=== PATIENT | female | born 1985 | race Caucasian/White ===

== ENCOUNTER 2021-03-06 03:09 | Outpatient (CLI) | payer MEDICAID, SELFPAY ==
[2021-03-06 12:18] LABS: Kit/Specimen SENT
[2021-03-06 12:28] LABS: Abs Immature Grans 0.07 10^3/uL (0.0-0.06); Absolute Basophil Count 0.03 10^3/uL (0.0-0.2); Absolute Eosinophil Count 0.23 10^3/uL (0.0-0.7); Absolute Monocyte Count 0.89 10^3/uL (0.1-0.8); Absolute Neutrophil Count 10.14 10^3/uL (1.2-6.7); Basophils % 0.2; Eosinophils % 1.7; HCT 37.3 % (36.0-46.0); Immature Grans % 0.5; Lymphocytes % 16.2; MCHC 34.9 % (32.0-36.0); MCV 88.8 fL (80-95); MPV 9.9 fL (8.0-11.0); Monocytes % 6.6; Neutrophils % 74.8; Nucleated RBC 0 %; Platelet Count 331 10^3/uL (130-400); RDW 12.5 % (11.7-14.6); RDW-SD 40.9 fL; WBC 13.55 10^3/uL (4.4-10.8)
[2021-03-06 12:30] LABS: Glucose,1 Hr (Glucola) 126 mg/dL (80-140)
[2021-03-06 13:20] LABS: TSH (W/Ref FT4) 1.39 uIU/mL (0.36-3.74)
[2021-03-07 10:17] LABS: HIV-1/2 Ag & Ab Screen Negative (Negative)
[2021-03-07 10:34] LABS: Hepatitis C Ab w Rflx HCV PCR Negative (Negative)
[2021-03-07 10:53] LABS: Rubella IgG Ab (UVM) Positive (See Note); Varicella IgG Antibody Positive (See Note)
[2021-03-07 11:00] LABS: Hepatitis B Surface Ag Negative (Negative)
[2021-03-08 12:37] LABS: Syphilis Total Ab w/Reflex Nonreactive (Nonreactive)
[2021-03-12 15:35] LABS: Result Summary NEGATIVE; Specimen WB Whole Blood
== END 2021-03-06 03:10 | disposition home or self-care (01) ==
LOC: LBO 03:09
PROVIDERS: Obstetrics & Gynecology; PCP Nurse Practitioner; Visit Provider Advanced Practice Midwife
DX: O09.891 Supervision of other high risk pregnancies, first trimester (principal); Z11.4 Encounter for screening for human immunodeficiency virus [HIV]; Z11.59 Encounter for screening for other viral diseases; Z01.84 Encounter for antibody response examination; F41.8 Other specified anxiety disorders; O99.211 Obesity complicating pregnancy, first trimester
CPT/HCPCS: 36415; 82950; 86787; 86803; 86850; 86900; 86901; 87340; 87389; 81220; 84443; 85025; 86762; 86780

== ENCOUNTER 2021-03-06 12:16 | Outpatient (REF) | payer MEDICAID, SELFPAY ==
--- NOTE | 2021-03-06 11:30 | PAPFT_PTH ---
PATIENT: Evita Cruz LOC: [facility] U#:[id number] AGE/SX: 36/F ROOM: RE03/06/[address]: Lavonne Abel : 1985 BED: DIS: 03/06/2021 SPEC #: [id number] RECD: 03/06/21 12:51 STATUS: AMRIK REPraveen #: [id number] ALESIA: 03/06/21 11:[address]: Lavonne Abel DEPT: [facility] Cytology RECD BY: Mary Payton ENTERED: 03/06/21 12:51 SP TYPE: PAPFT OTHR DR: Jessica Ibrahim Tissues: 1 - CX/ENDOCX FOR PAP SMEARS Procedures: PAP THIN PREP/[facility] Screening HPV DNA PROBE Comments: [id number]
[2021-03-06 15:00] LABS: *AMPHETAMINES SCREEN URINE Negative (Negative); *BARBITURATES SCREEN URINE Negative (Negative); *BENZODIAZEPINES SCREEN URINE Negative (Negative); Cannabinoids THC Negative (Negative); Cocaine Screen,Urine Negative (Negative); METHADONE URINE SCREEN Negative (Negative); OPIATES URINE SCREEN Negative (Negative)
[2021-03-06 15:03] LABS: Tricyclic Antidepressants Negative (Negative)
[2021-03-10 14:57] LABS: Chlamydia Result Negative (Negative); GC Result Negative (Negative)
[2021-03-13 11:17] LABS: Buprenorphine Negative ng/mL (Cutoff: 5.0); Norbuprenorphine Negative ng/mL (Cutoff: 2.5)
== END 2021-03-06 12:17 | disposition home or self-care (01) ==
LOC: LBN 12:16
PROVIDERS: PCP Nurse Practitioner; Visit Provider Advanced Practice Midwife
DX: Z34.91 Encounter for supervision of normal pregnancy, unspecified, first trimester (principal); Z11.3 Encounter for screening for infections with a predominantly sexual mode of transmission; Z12.4 Encounter for screening for malignant neoplasm of cervix; Z11.51 Encounter for screening for human papillomavirus (HPV)
CPT/HCPCS: 80307; 87491; 87591; 88142; 87086; 87480; 87510; 87624; 87660

== ENCOUNTER 2021-03-17 01:18 | Outpatient (CLI) | payer MEDICAID, SELFPAY ==
--- NOTE | 2021-03-17 07:00 | DI.US_ITS ---
Exam(s) US OB NAHOMI WEIGHT EXAM: US OB NAHOMI WEIGHT CLINICAL HISTORY: anatomy,high risk,obesity,O09.90. TECHNIQUE: Transabdominal obstetrical ultrasound was performed. This is the 1st for this is station our department. Seems somewhat early for anomaly survey study. COMPARISON: No exams were available for comparison FINDINGS: There is a single viable intrauterine gestation with cardiac activity identified-143 bpm Amniotic fluid: There is a normal amount of amniotic fluid with an NAHOMI of cm. Placental location: The placenta is posterior grade 0,with no evidence of placenta previa. Dating parameters place this at approximately 17 weeks and 1 day gestational age, implying LEESA of August 24, 2021. BPD measures 17 weeks and 2 days HC measures 17 weeks AC measures 17 week FL measures 17 weeks and 2 days Estimated weight is 183 gm-0 pound 6 ounces Fetus is at the 21st percentile on the Hadlock scale. IMPRESSION:: Viable intrauterine gestation, as described above. anomaly study was not performed today. Fetus is too early for anomaly study. DATA REPOSITORY:
== END 2021-03-17 01:38 ==
PROVIDERS: PCP Nurse Practitioner; Visit Provider Obstetrics & Gynecology
DX: O09.92 Supervision of high risk pregnancy, unspecified, second trimester (principal); O99.212 Obesity complicating pregnancy, second trimester; Z3A.17 17 weeks gestation of pregnancy
CPT/HCPCS: 76816

== ENCOUNTER 2021-05-16 02:19 | Outpatient (CLI) | payer MEDICAID, SELFPAY ==
[2021-05-16 16:46] LABS: Glucose,1 Hr (Glucola) 106 mg/dL (80-140)
[2021-05-16 16:58] LABS: HCT 37.7 % (36.0-46.0); HGB 12.5 g/dL (11.2-15.7); MCHC 33.2 % (32.0-36.0); MCV 90.6 fL (80-95); Platelet Count 337 10^3/uL (130-400); RBC 4.16 10^6/uL (3.93-5.22); RDW 12.9 % (11.7-14.6); RDW-SD 42.2 fL; WBC 17.05 10^3/uL (4.4-10.8)
== END 2021-05-16 02:20 | disposition home or self-care (01) ==
LOC: LBO 02:20
PROVIDERS: PCP Nurse Practitioner; Visit Provider Advanced Practice Midwife
DX: Z34.92 Encounter for supervision of normal pregnancy, unspecified, second trimester (principal); Z3A.26 26 weeks gestation of pregnancy
CPT/HCPCS: 36415; 82950; 85027

== ENCOUNTER 2021-07-18 13:41 | Outpatient (REF) | payer MEDICAID, SELFPAY ==
[2021-07-18 15:59] LABS: *AMPHETAMINES SCREEN URINE Negative (Negative); *BARBITURATES SCREEN URINE Negative (Negative); *BENZODIAZEPINES SCREEN URINE Negative (Negative); Cannabinoids THC Negative (Negative); Cocaine Screen,Urine Negative (Negative); METHADONE URINE SCREEN Negative (Negative); OPIATES URINE SCREEN Negative (Negative)
[2021-07-18 16:00] LABS: Tricyclic Antidepressants Negative (Negative)
[2021-07-24 11:45] LABS: Buprenorphine Negative ng/mL (Cutoff: 5.0); Norbuprenorphine Negative ng/mL (Cutoff: 2.5)
== END 2021-07-18 13:42 | disposition home or self-care (01) ==
LOC: LBN 13:41
PROVIDERS: PCP Nurse Practitioner; Visit Provider Obstetrics & Gynecology Gynecology
DX: Z34.93 Encounter for supervision of normal pregnancy, unspecified, third trimester (principal); Z3A.35 35 weeks gestation of pregnancy
CPT/HCPCS: 80307; 87081

== ENCOUNTER 2021-08-04 10:31 | Outpatient (CLI) | payer MEDICAID, SELFPAY ==
[2021-08-04 10:38] VITALS: BP 133/61; PULSE 90; TEMP 37
[2021-08-04 10:57] LABS: HCT 36.3 % (36.0-46.0); HGB 11.8 g/dL (11.2-15.7); MCH 29.3 pg (27.0-33.0); MCHC 32.5 % (32.0-36.0); MCV 90.1 fL (80-95); MPV 9.9 fL (8.0-11.0); Platelet Count 292 10^3/uL (130-400); RBC 4.03 10^6/uL (3.93-5.22); RDW-SD 42.6 fL; WBC 12.96 10^3/uL (4.4-10.8)
[2021-08-04 11:11] LABS: ALT 14 U/L (14-59); AST 11 U/L (15-37); Albumin 2.7 g/dL (3.4-5.0); Alkaline Phosphatase 114 U/L (46-116); Anion Gap 10.6 mmol/L (3-11); BUN 9 mg/dL (7-18); Bilirubin, Total 0.1 mg/dL (0.2-1.0); CO2 23.4 mmol/L (21.0-32.0); CREATININE 0.6 mg/dL (0.55-1.02); Chloride 104 mmol/L (98-107); Glucose 109 mg/dL (74-106); Sodium 138 mmol/L (136-145); Total Protein 6.7 g/dL (6.4-8.2)
[2021-08-04 11:27] VITALS: BP 133/61; PULSE 90
--- NOTE | 2021-08-04 11:41 | W.OBNST ---
Date of service: 08/05/21 Time of Service: 15:20 NST Evaluation Reason for NST Reason for NST Other: Elevated blood pressure NST Evaluation NST Results: Reactive NST Results Other: Reactive, category 1 NST Note NST Note Note: Reactive strip, category 1 NST NST Reviewed and Verified by: Serene Greenberg
== END 2021-08-04 11:45 | disposition home or self-care (01) ==
LOC: BCD 10:32 → OBS 10:37
PROVIDERS: PCP Nurse Practitioner; Visit Provider Obstetrics & Gynecology
DX: O26.893 Other specified pregnancy related conditions, third trimester (principal); R03.0 Elevated blood-pressure reading, without diagnosis of hypertension; Z3A.38 38 weeks gestation of pregnancy
CPT/HCPCS: 59025; 36415; 80053; 85027

== ENCOUNTER 2021-10-06 16:11 | Outpatient (REF) | payer MEDICAID, SELFPAY ==
[2021-10-08 07:27] LABS: Chlamydia Result Negative (Negative); GC Result Negative (Negative)
== END 2021-10-06 16:12 | disposition home or self-care (01) ==
LOC: LBN 16:11
PROVIDERS: PCP Nurse Practitioner; Visit Provider Obstetrics & Gynecology
DX: Z11.3 Encounter for screening for infections with a predominantly sexual mode of transmission (principal)
CPT/HCPCS: 87491; 87591

== ENCOUNTER 2022-01-21 16:05 | Outpatient (REF) | payer OTHER, SELFPAY ==
[2022-01-21 18:37] LABS: HCT 43.6 % (36.0-46.0); HGB 13.7 g/dL (11.2-15.7); MCHC 31.4 % (32.0-36.0); MPV 9.8 fL (8.0-11.0); Platelet Count 393 10^3/uL (130-400); RBC 5.07 10^6/uL (3.93-5.22); RDW 14.3 % (11.7-14.6); RDW-SD 45.2 fL; WBC 7.71 10^3/uL (4.4-10.8)
[2022-01-21 18:46] LABS: ALT 23 U/L (14-59); AST 14 U/L (15-37); Albumin 3.8 g/dL (3.4-5.0); Alkaline Phosphatase 89 U/L (46-116); Anion Gap 8.4 mmol/L (3-11); BUN 13 mg/dL (7-18); Bilirubin, Total 0.3 mg/dL (0.2-1.0); CO2 27.6 mmol/L (21.0-32.0); CREATININE 0.8 mg/dL (0.55-1.02); Chloride 103 mmol/L (98-107); Glucose 89 mg/dL (74-106); Potassium 4.4 mmol/L (3.5-5.1); Sodium 139 mmol/L (136-145); TSH (W/Ref FT4) 1.63 uIU/mL (0.36-3.74); Total Protein 7.5 g/dL (6.4-8.2)
== END 2022-01-21 16:06 | disposition home or self-care (01) ==
LOC: NCHCN 16:05
PROVIDERS: PCP Nurse Practitioner; Visit Provider Nurse Practitioner Family
DX: F41.8 Other specified anxiety disorders (principal); E66.9 Obesity, unspecified
CPT/HCPCS: 80053; 85027; 84443

== ENCOUNTER 2023-09-06 09:59 | Outpatient (REF) | payer MEDICAID, SELFPAY ==
[2023-09-06 15:08] LABS: ALT 21 U/L (14-59); AST 12 U/L (15-37); Albumin 3.5 g/dL (3.4-5.0); Alkaline Phosphatase 70 U/L (46-116); BUN 12 mg/dL (7-18); Bilirubin, Total 0.3 mg/dL (0.2-1.0); Calcium 9.2 mg/dL (8.5-10.1); Calculated LDL 75 mg/dL (<100); Chloride 105 mmol/L (98-107); Cholesterol 131 mg/dL (<200); Estimated GFR 73.95 (mL/min/1.73m2); Glucose 90 mg/dL (74-106); HDL Cholesterol 49 mg/dL (40-60); Potassium 4.5 mmol/L (3.5-5.1); Sodium 140 mmol/L (136-145); Total Protein 6.8 g/dL (6.4-8.2); Triglyceride 38 mg/dL (<150)
[2023-09-06 15:31] LABS: Hemoglobin A1C 5.5 % (<5.7)
== END 2023-09-06 10:00 | disposition home or self-care (01) ==
LOC: NCHCN 09:59
PROVIDERS: PCP Nurse Practitioner; Visit Provider Nurse Practitioner Family
DX: E66.01 Morbid (severe) obesity due to excess calories (principal); Z13.220 Encounter for screening for lipoid disorders; Z13.1 Encounter for screening for diabetes mellitus
CPT/HCPCS: 80053; 80061; 83036

== ENCOUNTER 2024-10-16 02:14 | Outpatient (CLI) | payer OTHER, SELFPAY ==
--- NOTE | 2024-10-16 08:00 | DI.RAD_ITS ---
Exam(s) XR LUMBAR SPINE COMPLETE EXAM: XR LUMBAR SPINE COMPLETE CLINICAL HISTORY: ? bony abnormality, scoliois,lumbar back pain with radiculopathy,m54.16. TECHNIQUE: 2D digital imaging was performed. Five views. COMPARISON: No exams were available for comparison FINDINGS: BONES: No fracture or destructive lesion. Vertebral body heights are maintained. No facet hypertro phy identified . DISKS: Intervertebral disc spaces are maintained. ALIGNMENT: Lumbar spinal alignment is within normal limits. SOFT TISSUE: Normal. IUD. IMPRESSION: Unremarkable radiographs of the lumbar spine. DATA REPOSITORY: RADIATION DOSE DELIVERED:
== END 2024-10-16 02:34 ==
LOC: DI 02:14
PROVIDERS: PCP Nurse Practitioner Adult Health; Visit Provider Nurse Practitioner Adult Health
DX: M54.16 Radiculopathy, lumbar region (principal)
CPT/HCPCS: 72110

== ENCOUNTER 2025-02-06 14:03 | Outpatient (REF) | payer OTHER, SELFPAY ==
--- NOTE | 2025-02-06 13:30 | PAPFT_PTH ---
PATIENT: Evita Cruz LOC: [facility] U#:[id number] AGE/SX: 39/F ROOM: RE02/06/[address]: Grisel Jacob NP : 1985 BED: DIS: 02/06/2025 SPEC #: [id number] RECD: 02/06/25 18:19 STATUS: AMRIK REQ #: [id number] ALESIA: 02/06/25 13:[address]: Nidia GARCIA,Grisel DEPT: [facility]ology RECD BY: Mary Payton ENTERED: 02/06/25 18:20 SP TYPE: PAPFT OTHR DR: Mindy Jackson APRN Tissues: 1 - CX/ENDOCX FOR PAP SMEARS Procedures: PAP THIN PREP/[facility] Screening HPV DNA PROBE Comments: [id number] (HPV 16 & 18/45)
== END 2025-02-06 14:04 | disposition home or self-care (01) ==
LOC: LBN 14:03
PROVIDERS: PCP Nurse Practitioner Adult Health; Visit Provider Nurse Practitioner Women's Health
DX: Z12.4 Encounter for screening for malignant neoplasm of cervix (principal); Z11.51 Encounter for screening for human papillomavirus (HPV)
CPT/HCPCS: 88142; 87624

== ENCOUNTER 2025-03-08 02:26 | Outpatient (CLI) | payer OTHER, SELFPAY ==
--- NOTE | 2025-03-08 12:00 | DI.MAMMO_ITS ---
Exam(s) MAMMO SCREENING EXAM: MAMMO SCREENING CLINICAL HISTORY: screening TECHNIQUE: Bilateral full field digital CC and MLO mammographic images were obtained with 3D tomosyn thesis and utilizing computer aided detection (CAD). COMPARISON: This is a baseline examination. FINDINGS: Masses/Architectural Distortion: No suspicious masses or areas of architectural distortion are presen t. Microcalcifications: No suspicious pleomorphic-type are seen. Skin Thickening/Nipple Retraction: None. IMPRESSION: 1. No evidence for malignancy is seen at this time. 2. Unless there is more urgent need, screening mammography is recommended, as per [employer] guidelines. BI-RADS Category 1 - Negative Breast Density - Category B - There are scattered areas of fibroglandular density. Breast density Category C or D implies that the patient has dense breast tissue. Dense breast tissue can make it harder to find cancer on a mammogram. Dense breast tissue is also associated with an incr eased risk of breast cancer. This information about the result of the mammogram report was provided to the patient to raise their awareness. Use this report when you speak with the patient about their risks for breast cancer, which includes their family history. At that time, you may recommend additional screening tests (Ultrasoun d or MRI) as these tests may add significant information. A negative radiographic report should not delay biopsy if a dominant or clinically suspicious mass is present. Up to ten percent of cancers are not identified on mammography. A negative report may reinforce clinical impression. Adenosis and dense breasts may obscure an underlying neoplasm. False positive reports average 6 to 10%. Patient will receive a letter notifying them of these results.
== END 2025-03-08 02:46 ==
LOC: DI 02:26
PROVIDERS: PCP Nurse Practitioner Adult Health; Visit Provider Nurse Practitioner Women's Health
DX: Z12.31 Encounter for screening mammogram for malignant neoplasm of breast (principal); R92.323 Mammographic fibroglandular density, bilateral breasts
CPT/HCPCS: 77063; 77067